=== PATIENT | female | born 1950 | race African-American/Black ===

== ENCOUNTER 2022-10-31 08:43 | Day surgery (SDC) | payer OTHER ==
[2022-10-27 16:24] VITALS: BMI 27.4
[2022-10-31 10:30] VITALS: RESP 18
[2022-10-31 10:53] VITALS: BP 129/70; PULSE 63; TEMP 98
== END 2022-10-31 10:50 | disposition home or self-care (01) ==
LOC: FASU-ENDO 08:43
PROVIDERS: ATTEND Internal Medicine Gastroenterology
PROC: 0DBL8ZX Excision of Transverse Colon, Via Natural or Artificial Opening Endoscopic, Diagnostic (ICD-10-PCS; principal; 2022-10-31 09:42)
DX: Z12.11 Encounter for screening for malignant neoplasm of colon (principal); D12.3 Benign neoplasm of transverse colon; Z86.010 Personal history of colon polyps
CPT/HCPCS: 88305-TC